=== PATIENT | male | born 1970 | race Caucasian/White ===

== ENCOUNTER 2018-02-25 09:48 | Outpatient (CLI) | payer MEDICARE, OTHER | END 2018-02-25 15:54 | disposition home or self-care (01) | LOC: HPC 09:48 | DX: K86.89 Other specified diseases of pancreas (principal); I12.0 Hypertensive chronic kidney disease with stage 5 chronic kidney disease or end stage renal disease; E11.22 Type 2 diabetes mellitus with diabetic chronic kidney disease; N18.6 End stage renal disease; D64.9 Anemia, unspecified; E78.00 Pure hypercholesterolemia, unspecified; K21.9 Gastro-esophageal reflux disease without esophagitis; N52.9 Male erectile dysfunction, unspecified; A04.72 Enterocolitis due to Clostridium difficile, not specified as recurrent; F12.10 Cannabis abuse, uncomplicated; Z72.0 Tobacco use; Z99.2 Dependence on renal dialysis | CPT/HCPCS: G0463 ==

== ENCOUNTER 2019-03-17 09:39 | Day surgery (SDC) | payer MEDICARE, OTHER ==
[2019-03-17 11:25] LABS: POTASSIUM 5.6 mmol/L (3.5-5.1)
[2019-03-17] MEDS ORDERED: ONDANSETRON 4 MG INJ IV (11:30)
[2019-03-17] MEDS ORDERED: FENTAnyl 50 MCG/ML VIAL IV (11:30)
[2019-03-17] MEDS ORDERED: FENTAnyl 50 MCG/ML VIAL (11:54)
[2019-03-17] MEDS ORDERED: PROPOFOL 20 ML (11:54)
== END 2019-03-17 13:50 | disposition home or self-care (01) ==
LOC: GIL 09:39
DX: K29.00 Acute gastritis without bleeding (principal); I12.0 Hypertensive chronic kidney disease with stage 5 chronic kidney disease or end stage renal disease; N18.6 End stage renal disease; Z99.2 Dependence on renal dialysis; E11.9 Type 2 diabetes mellitus without complications
CPT/HCPCS: 43239; 84132; 88305; 88312